=== PATIENT | male | born 1965 | race Two or more races ===

== ENCOUNTER 2025-11-13 16:39 | Emergency (ER) | payer OTHER, SELFPAY ==
--- OUTSIDE RECORDS SUMMARY | 2025-11-05 09:30 | XMS_ITS | Encounter Summary ---
Author Organization [facility] Address [address], [address] [place] [address] Care Team Providers Care Final Inspector Name Role Phone Homer Garcia MD Primary Care Provider [phone]- [phone] Reason for Referral * Outpatient Service (Routine) - OpenSpecialtyDiagnoses / ProceduresReferred By ContactReferred To ContactCardiology Diagnoses Precordial pain Procedures [place] 12 [place] [address] [facility] [address] [place] [address] [place] [address] Phone: tel: fax: Referral IDStatusReasonStart DateExpiration DateVisits RequestedVisits [id number] Reason for Visit * ReasonCommentsFlank PainChest Painx1 monthOrdersPatient asking about colonoscopy. Encounter Details DateTypeDepartmentCare Team (Latest Contact Info)Ldsprsyipho75/23/2025 9:30 AM ESTOffice Visit [facility] [address] [place] [address] [place] [address] [address] [place] [address] Pure hypercholesterolemia (Primary Dx); Essential hypertension; Vitamin D deficiency; Annual physical exam; Screening PSA (prostate specific antigen); Precordial pain; Left flank pain; Costochondritis Social History Tobacco UseTypesPacks/DayYears UsedDateSmoking Tobacco: NeverSmokeless Tobacco: NeverAlcohol UseStandard Drinks/WeekCommentsYes0 (1 standard drink = 0.6 oz pure alcohol)occasionalAHC UtilitiesAnswerDate RecordedIn the past 12 months has the electric, gas, oil, or water company threatened to shut off services in your home?No01/16/2025Overall Financial Resource Strain (CARDIA)AnswerDate Recorded How hard is it for you to pay for the very basics like food, housing, medical care, and heating?Not hard at all06/11/2024HQ-2AnswerDate RecordedPHQ-9 Total Llhrj482Hunger Vital SignAnswerDate RecordedWithin the past 12 months, you worried that your food would run out before you got the money to buymore. Never true01/16/2025Within the past 12 months, the food you bought just didn't last and you didn't have money to get more.Never true01/16/2025PRAPARE - TransportationAnswerDate RecordedIn the past 12 months, has lack of transportation kept you from medical appointments or from getting medications?No 01/16/2025In the past 12 months, has lack of transportation kept you from meetings, work, or from getting things needed for daily living?No01/16/2025 Housing Stability Vital SignAnswerDate RecordedUnable to Pay for Housing in the Last YearNot on file06/11/2024Number of Places Lived in the Last YearNot on file 06/11/2024In the last 12 months, was there a time when you did not have a steady place to sleep or slept in ashelter (including now)?06/11/2024Housing Stability Vital SignAnswerDate RecordedIn the last 12 months, was there a time when you were not able to pay the mortgage or rent on time?No01/16/2025In the past 12 months, how many times have you moved where you were living? At any time in the past 12 months, were you homeless or living in a long-term (including now)?No01/16/2025Food InsecurityAnswerDate RecordedWithin the past 12 months, you worried that your food would run out before you got the money to buy more.Within the past 12 months, the food you bought just didn't last and you didn't have money to get more.Sex and Gender InformationValue Date RecordedSex Assigned at BirthNot on fileLegal KwkRych6712/24/2012 9:08 PM EST Gender YnveohrnAcpd10/08/2024 7:42 AM EDTSexual OrientationNot on filedocumented as of this encounter Last Filed Vital Signs Vital SignReadingTime TakenCommentsBlood Gexpcgov518/7611/05/2025 9:31 AM EST Geejm090511/05/2025 9:31 AM ESTTemperature--Respiratory Rate--Oxygen Ybllcggixc89% 11/05/2025 9:31 AM ESTInhaled Oxygen Concentration--Jijxfs79.2 kg (187 lb 12.8 oz)11/05/2025 9:31 AM YJMNpkvfh668.5 cm (5' 7.52 )11/05/2025 9:31 AM ESTBody Mass Index28.9611/05/2025 9:31 AM ESTdocumented in this encounter Functional Status * PHQ-2 Over the past 2 weeks, how often have you been bothered by any of the following problems?QuestionAnswerDate of AssessmentAuthorLittle interest or pleasure in doing bceslo906/23/2025 9:31 AM Lucia Saucedo MAFeeling down, depressed, or aiexekzg952/23/2025 9:31 AM Lucia Saucedo MA documented as of this encounter Progress Notes * Homer Garcia MD - 11/05/2025 9:36 AM EST Images from the original note were not included. [facility] [address] [address] [address] Dept: [phone] Jesus Black is a 60 y.o. male Established patient, who presents today for his medical conditions/complaints as noted below. Chief Complaint Patient presents with Flank Pain Chest Pain x1 month Orders Patient asking about colonoscopy. HPI: History of Present Illness The patient is a 60-year-old male who presents for evaluation of chest discomfort. He has been experiencing generalized body aches, particularly in his arms and left side, for the past month. Additionally, he reports chest discomfort, which he initially attributed to heartburn or muscle strain. The pain, described as constant, lasts approximately 15 minutes. He does not experience any associated sweating or nausea. He has not been engaging in physical activity such as gym workouts recently. 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 He has been managing the pain with Tylenol and Motrin, which provide some relief. He recalls a similar episode 10 years ago when he was hospitalized forrapid heart rate and received three doses of nitroglycerin. Despite this, no cardiac abnormalities were detected at that time. He has tried Tums without any significant relief. He is currently on omeprazole for stomach issues. He also reports back pain in the kidney area, which he believes may be nerve- related. He has a history of kidney issues, having been hospitalized for kidney failure during the COVID-19 pandemic. Occupation: driver messenger Reviewed prior notes: None Reviewed previous: Labs LDL Cholesterol (mg/dL) Date Value 11/19/2024 183 (H) LDL Calculated (mg/dL) Date Value 12/15/2018 213 (A) HDL (mg/dL) Date Value 11/19/2024 44 (goal LDL is <100) AST (U/L) Date Value 01/03/2025 18 ALT (U/L) Date Value 01/03/2025 21 BUN (mg/dL) Date Value 11/19/2024 19 Hemoglobin A1C (%) Date Value 05/12/2020 5.8 TSH (uIU/mL) Date Value 03/22/2024 1.85 BP Readings from Last 3 Encounters: 11/05/25 112/76 05/29/25 114/72 04/04/25 110/82 (goal 120/80) Hemoglobin A1C Date Value Ref Range Status 05/12/2020 5.8 4.0 - 6.0 % Final Past Medical History: Diagnosis Date Abdominal tenderness, epigastric Acute colitis Acute pancreatitis Acute sinusitis Chest pain patient states 6yrs ago (written 12/19/19) cardiac workup negative Cough Cramp of limb GERD (gastroesophageal reflux disease) pt off meds Hemorrhoids Hyperlipidemia Hypertension RUQ abdominal tenderness Past Surgical History: Procedure Laterality Date ANKLE SURGERY Right 12/27/2019 1.Right ankle removal of hardware through separate incisions, Right ankle peroneal tendons tenolysis and debridement of scar tissue ANKLE SURGERY Right 12/27/2019 RIGHT ANKLE HARDWARE REMOVAL performed by Dom Lazaro MD at [facility] OR COLONOSCOPY 07/2004 moderate sized internal hemorrhoids COLONOSCOPY 2013 COLONOSCOPY N/A 01/12/2019 COLONOSCOPY WITH COLD BIOPSY performed by Kadeem Najera MD at [facility] OR FOOT SURGERY Right 2020 KNEE ARTHROSCOPY Right 07/09/2022 SIGMOIDOSCOPY N/A 05/13/2023 Sigmoid polypectomy with cold biopsy forceps. performed by Kadeem Najera MD at [facility] ENDO UPPER GASTROINTESTINAL ENDOSCOPY N/A 03/12/2025 ESOPHAGOGASTRODUODENOSCOPY BIOPSY performed by Phil Perez MD at [facility] ENDO Family History Problem Relation Age of Onset Heart Disease Mother High Blood Pressure Mother High Cholesterol Mother Other Mother CABG Cancer Father colon Tuberculosis Father Cancer Paternal Grandfather colon Heart Disease Brother Social History Tobacco Use Smoking status: Never Smokeless tobacco: Never Substance Use Topics Alcohol use: Yes Alcohol/week: 0.0 standard drinks of alcohol Comment: occasional Current Outpatient Medications Medication Sig Dispense Refill Evolocumab (REPATHA) SOSY syringe Inject 1 mL into the skin every 14 days 2 mL 11 omeprazole (PRILOSEC) 40 MG delayed release capsule TAKE 1 CAPSULE BY MOUTH EVERY MORNING BEFORE BREAKFAST 90 capsule 0 clobetasol (TEMOVATE) 0.05 % cream Apply topically 2 times daily. 45 g 0 losartan (COZAAR) 100 MG tablet Take 1 tablet by mouth daily 90 tablet 3 cloNIDine (CATAPRES) 0.3 MG tablet Take 1 tablet by mouth daily 90 tablet 3 NIFEdipine (PROCARDIA XL) 90 MG extended release tablet Take 1 tablet by mouth daily 90 tablet 3 amphetamine-dextroamphetamine (ADDERALL) 10 MG tablet Take 1 tablet by mouth 2 times daily as needed (Concentration at work) for up to 30 days. 60 tablet 0 albuterol (PROVENTIL) (2.5 MG/3ML) 0.083% nebulizer solution Take 3 mLs by nebulization 4 times daily as needed for Wheezing 120 each 1 albuterol sulfate HFA (PROVENTIL;VENTOLIN;PROAIR) 108 (90 Base) MCG/ACT inhaler Inhale 2 puffs intothe lungs every 6 hours as needed for Wheezing 3 each 0 No current facility-administered medications for this visit. Allergies Allergen Reactions Environmental/Seasonal Other Other (See Comments) Statins Health Maintenance Topic Date Due HIV screen Never done Pneumococcal 50+ years Vaccine (1 of 1 - PCV) Never done A1C test (Diabetic or Prediabetic) 05/12/2021 Flu vaccine (1) Never done COVID-19 Vaccine (3 - 2024- season) 2025 Colorectal Cancer Screen 05/16/2026 Depression Screen 05/29/2026 Lipids 11/19/2029 DTaP/Tdap/Td vaccine (3 - Td or Tdap) 10/29/2031 Respiratory Syncytial Virus (RSV) or age 60 yrs+ (1 - 1-dose 75+ series) 2038 Shingles vaccine Completed Hepatitis C screen Completed Hepatitis A vaccine Aged Out Hepatitis B vaccine Aged Out Hib vaccine Aged Out Polio vaccine Aged Out Meningococcal (ACWY) vaccine Aged Out Meningococcal B vaccine Aged Out Prostate Specific Antigen (PSA) Screening or Monitoring Discontinued Subjective: Review of Systems Constitutional: Negative for chills and fever. HENT: Negative for rhinorrhea and sore throat. Eyes: Negative for discharge and redness. Respiratory: Negative for cough, shortness of breath and wheezing. Cardiovascular: Negative for chest pain and palpitations. Gastrointestinal: Negative for abdominal pain, diarrhea, nausea and vomiting. Genitourinary: Negative for dysuria and frequency. Musculoskeletal: Negative for arthralgias and myalgias. Neurological: Negative for dizziness, light-headedness and headaches. Psychiatric/Behavioral: Negative for sleep disturbance. Objective: BP 112/76 Pulse 65 Ht 1.715 m (5' 7.52 ) Wt 85.2 kg (187 lb 12.8 oz) SpO2 98% BMI 28.96 kg/m?? Physical Exam Vitals and nursing note reviewed. Constitutional: General: He is not in acute distress. Appearance: He is well-developed. He is not ill-appearing. HENT: Head: Normocephalic and atraumatic. Right Ear: External ear normal. Left Ear: External ear normal. Eyes: General: No scleral icterus. Right eye: No discharge. Left eye: No discharge. Conjunctiva/sclera: Conjunctivae normal. Neck: Thyroid: No thyromegaly. Trachea: No tracheal deviation. Cardiovascular: Rate and Rhythm: Normal rate and regular rhythm. Heart sounds: Normal heart sounds. Pulmonary: Effort: Pulmonary effort is normal. No respiratory distress. Breath sounds: Normal breath sounds. No wheezing. Comments: Chest wall did show reproduction of pain with palpation over the left costochondral junctions Lymphadenopathy: Cervical: No cervical adenopathy. Skin: General: Skin is warm. Findings: No rash. Neurological: Mental Status: He is alert and oriented to person, place, and time. Psychiatric: Mood and Affect: Mood normal. Behavior: Behavior normal. Thought Content: Thought content normal. The 10-year ASCVD risk score (Shannon HERNÁNDEZ, et al., 2019) is: 13% Values used to calculate the score: Age: 60 years Clinically relevant sex: Male Is Non- : No Diabetic: No Tobacco smoker: No Systolic Blood Pressure: 112 mmHg Is BP treated: Yes HDL Cholesterol: 44 mg/dL Total Cholesterol: 269 mg/dL Assessment and Plan: Trial of Lodine 400 mg twice daily for 2 weeks If no improvement of chest pain should worsen, would refer to cardiology for second opinion EKG done showing no acute changes Blood work ordered to be done after November 20 Assessment & Plan 1. Chest discomfort: - The discomfort has been present for over a month, primarily in the chest and left side, with no relief from Tums. - Tenderness is noted upon palpation of the costochondral junction, suggesting a muscular origin. - An EKG will be performed to rule out any cardiac issues. - Tylenol and Motrin provide some relief for the discomfort. 2. Kidney pain: - The patient reports pain in the kidney area, which has been persistent since a previous episode during COVID. - A urine test will be conducted to assess kidney function. - The patient has a history of kidney issues, including an episode of kidney shutdown during COVID. Assessment & Plan 1. Essential hypertension The following orders have not been finalized: - NIFEdipine (PROCARDIA XL) 90 MG extended release tablet - losartan (COZAAR) 100 MG tablet - cloNIDine (CATAPRES) 0.3 MG tablet Results No follow-ups on file. The patient (or guardian, if applicable) and other individuals in attendance with the patient were advised that Artificial Intelligence will be utilized during this visit to record, process the conversation to generate a clinical note, and support improvement of the AI technology. The patient (or guardian, if applicable) and other individuals in attendance at the appointment consented to the use of AI, including the recording. Patient given educational materials - see patient instructions. Discussed use, benefit, and side effects of prescribed medications. All patient questions answered. Pt voiced understanding. Reviewed health maintenance. Instructed to continue current medications, diet and exercise. Patient agreed with treatment plan. Follow up as directed. documented in this encounter Plan of Treatment NameTypePriorityAssociated DiagnosesOrder ScheduleLipid, FastingLabRoutine Pure hypercholesterolemia Expected: 11/20/2025, Expires: 02/18/2026asic Metabolic Panel, FastingLab Routine Annual physical exam Expected: 11/20/2025, Expires: 02/18/2026Hepatic Function PanelLabRoutine Annual physical exam Expected: 11/20/2025, Expires: 02/18/2026PSA ScreeningLabRoutine Screening PSA (prostate specific antigen) Expected: 11/20/2025, Expires: 02/18/2026Vitamin D 25 HydroxyLabRoutine Vitamin D deficiency Expected: 11/20/2025, Expires: 02/18/2026Urinalysis with MicroscopicLabRoutine Left flank pain Expected: 11/05/2025, Expires: 11/05/2026documented as of this encounter Procedures Procedure NamePriorityDate/TimeAssociated DiagnosisCommentsEKG 12-LEADRoutine 11/05/2025 Precordial pain documented in this encounter Results * EKG 12 Lead (11/05/2025) Narrative Authorizing ProviderResult TypeResult StatusHomer Garcia MDECHarpreet ORDERABLES Final Result documented in this encounter Visit Diagnoses Diagnosis Pure hypercholesterolemia- Primary Essential hypertension Unspecified essential hypertension Vitamin D deficiency Unspecified vitamin D deficiency Annual physical exam Routine general medical examination at a health care facility Screening PSA (prostate specific antigen) Special screening for malignant neoplasm of prostate Precordial pain Left flank pain Abdominal pain, unspecified site Costochondritis Tietze's disease documented in this encounter Care Teams Team MemberRelationshipSpecialtyStart [place] [address] [place] [address] [place] [address] PCP - GeneralFamily Medicine07/16/22documented as of this encounter
[2025-11-13 16:43] VITALS: BP 156/102; PULSE 82; TEMP 37.1; O2SAT 99; BMI 28.4
[2025-11-13 20:10] LABS: Glucose Urine UA NEGATIVE (NEGATIVE)
--- NOTE | 2025-11-13 20:16 | ED.GENADUL1 ---
HPI HPI - General Adult General Chief complaint: Back Pain/Injury Stated complaint: Kidney Symptoms Time Seen by Provider: 11/13/25 20:04 Source: patient Mode of arrival: walk-in History of Present Illness HPI narrative: 60-year-old male presents for right flank and abdominal pain. It started 8 days ago. He has had a kidney stone and years ago he was told he might need to have his gallbladder taken out. His states he had a fever at home but it was not checked. The day before it started he was pushing heavy carts. No current left flank or left abdominal pain. No vomiting or cough. Related Data Previous Rx's ?Medication ?Instructions ?Recorded ibuprofen 800 mg tablet 800 mg PO Q8H PRN pain #20 tabs 11/13/25 methocarbamol 750 mg tablet 750 mg PO Q8H #20 tabs 11/13/25 Allergies Allergy/AdvReac Type Severity Reaction Status Date / Time Ckkhuoj-WJU-IeF Reductase Allergy Severe aches / Verified 11/13/25 20:10 Inhibitor pain Review of Systems ROS Narrative A ten point review of systems is negative except as noted above. PFSH PFSH Social History Little interest or pleasure in doing things: not at all Feeling down, depressed, or hopeless: not at all Exam Narrative Exam Narrative: Nurses note and vital signs reviewed General:The patient appears mildly uncomfortable. He is in no distress Skin:Warm, dry, no pallor noted.There is no rash noted, including in the flank and abdominal areas. Head:Normocephalic, atraumatic Eye: Normal conjunctiva, no drainage Ears, Nose, Mouth, and Throat: oral mucosa is moist. Nares patent. Cardiovascular:Regular Rate and Rhythm Respiratory:Patient is in no distress, no accessory muscle use, lungs are clear to auscultation, no wheezing, rales or rhonchi Back:non-tender, no CVA tenderness bilaterally to percussion. GI: Soft. Nondistended. Minimal tenderness in the right upper quadrant. Musculoskeletal: The patient has no evidence of calf tenderness, no pitting edema, symmetrical pulses noted bilaterally Neurological:A&O, normal speech Psychiatric:Cooperative Constitutional Vital Signs, click to edit/add: Last Vital Signs Temp 98.8 F 11/13/25 16:43 Pulse 70 11/13/25 21:21 Resp 20 11/13/25 21:21 BP 173/87 H 11/13/25 21:21 Pulse Ox 97 11/13/25 21:21 O2 Del Method Room Air 11/13/25 21:21 Course Vital Signs Vital signs: Vital Signs Temperature 98.8 F 11/13/25 16:43 Pulse Rate 82 11/13/25 16:43 Respiratory Rate 18 11/13/25 16:43 Blood Pressure 156/102 H 11/13/25 16:43 Pulse Oximetry 99 11/13/25 16:43 Oxygen Delivery Method Room Air 11/13/25 16:43 Temperature 98.8 F 11/13/25 16:43 Pulse Rate 70 11/13/25 21:21 Respiratory Rate 20 11/13/25 21:21 Blood Pressure 173/87 H 11/13/25 21:21 Pulse Oximetry 97 11/13/25 21:21 Oxygen Delivery Method Room Air 11/13/25 21:21 Medical Decision Making MDM Narrative Medical decision making narrative: Extensive workup here is negative including CT scan and gallbladder ultrasound. Blood work is normal. Finding of gallstone is noted but there is no evidence of acute cholecystitis. He has a long history of back issues and has been recommended by 2 back specialist to have surgery. This is likely the cause of his symptoms. He is discharged home on ibuprofen and Robaxin. Treatment diagnosis and follow-up were discussed with the patient. Differential Diagnosis Differential Diagnosis: Kidney stone, UTI, pyelonephritis, muscle strain, gallbladder disease Lab Data Lab results reviewed: Yes I reviewed the patient's lab results Labs: Lab Results 11/13/25 11/13/25 Range/Units 16:49 20:30 WBC 7.7 (4.0-11.0) 10^3/uL RBC 5.52 (4.70-6.10) 10^6/uL Hgb 16.3 (14.0-18.0) g/dL Hct 46.7 (42.0-54.0) % MCV 84.6 (80.0-94.0) fL MCH 29.5 (25.9-34.0) pg MCHC 34.9 (29.9-35.2) g/dL RDW 12.9 (11.0-15.0) % Plt Count 249 (150-450) 10^3/uL MPV 10.1 (9.5-13.5) fL Neut % (Auto) 68.3 (43.0-75.0) % Lymph % (Auto) 23.1 (20.5-60.0) % [place] % (Auto) 7.0 (1.7-12.0) % Eos % (Auto) 0.6 L (0.9-7.0) % Baso % (Auto) 0.6 (0.2-2.0) % Neut # (Auto) 5.3 (1.4-6.5) 10^3/uL Lymph # (Auto) 1.8 (1.2-3.8) 10^3/uL [place] # (Auto) 0.5 (0.3-0.8) 10^3/uL Eos # (Auto) 0.1 (0.0-0.7) 10^3/uL Baso # (Auto) 0.1 (0.0-0.1) 10^3/uL Abs Immat Gran (auto) 0.03 (0.00-0.03) 10^3/uL Imm/Tot Granulo (auto) 0.4 (0.0-0.5) % Sodium 142 (136-145) mmol/L Potassium 3.2 L (3.5-5.1) mmol/L Chloride 107 (98-107) mmol/L Carbon Dioxide 23.3 (21.0-32.0) mmol/L Anion Gap 14.9 BUN 15.0 (7.0-18.0) mg/dL Creatinine 1.37 H (0.70-1.30) mg/dL Est GFR ( Amer) >60 (>=60 mL/min/1.73m^2) Est GFR (Non-Af Amer) 53 L (>=60 mL/min/1.73m^2) BUN/Creatinine Ratio 10.9 Glucose 158 H (74-106) mg/dL Calcium 9.1 (8.5-10.1) mg/dL Total Bilirubin 0.5 (0.2-1.0) mg/dL Direct Bilirubin 0.1 (0.0-0.2) mg/dL AST 14 L (15-37) U/L ALT 25 (16-63) U/L Alkaline Phosphatase 151 H (46-116) U/L Total Protein 7.8 (6.4-8.2) g/dL Albumin 4.2 (3.4-5.0) g/dL Globulin 3.6 g/dL Albumin/Globulin Ratio 1.2 Amylase 46 (25-115) U/L Lipase 33.0 (16.0-77.0) U/L Urine Color Yellow (YELLOW) Urine Clarity Clear (CLEAR) Urine pH 6.0 (5.0-9.0) Ur Specific [place] 1.025 (1.005-1.025) Urine Protein 100 A (NEG/TRACE) mg/dL Urine Glucose (UA) Negative (NEGATIVE) mg/dL Urine Ketones 15 A (NEGATIVE) mg/dL Urine Occult Blood Negative (NEGATIVE) Urine Nitrite Negative (NEGATIVE) Urine Bilirubin Small A (NEGATIVE) Urine Urobilinogen 0.2 (0.2-1.0) EU/dL Ur Leukocyte Esterase Negative (NEGATIVE) Urine RBC 0-2 (0-2) #/HPF Urine WBC 0-2 A (NONE SEEN) #/HPF Ur Squamous Epith Cells Rare (NONE/RARE) #/LPF Urine Crystals Seen A (None Seen) #/HPF Calcium Oxalate Crystal Rare Urine Bacteria Moderate A (NONE SEEN) #/HPF Urine Casts Seen A (NONE SEEN) #/LPF Hyaline Casts Rare Urine Mucus Moderate A (NONE SEEN) Ur Culture Indicated? Yes-[facility] [place] Imaging Data CT scan - abdomen: Radiologist's impression: ITS Impressions Abdomen/Pelvis CT 11/13/25 20:31 IMPRESSION: No acute intra-abdominal pathology. Uncomplicated colonic diverticula are noted. There is a 2 mm nonobstructing stone at the superior pole collecting system of the left kidney. Additional chronic findings are noted as above. Impression dictated by: Darinel Sena M.D. 11/13/2025 9:30 PM Dictation Location: [facility] Electronically authenticated by: [id number] Y Date: 11/13/2025 21:30 Upper Quadrant Ultrasound 11/13/25 21:24 IMPRESSION: No sonographic evidence of acute cholecystitis. Echogenic stones are noted in the neck of the gallbladder. Findings suggest hepatic steatosis. Impression dictated by: Darinel Sena M.D. 11/13/2025 10:07 PM Dictation Location: [facility] Electronically authenticated by: [id number] Y Date: 11/13/2025 22:07 Discharge Plan Discharge Chief Complaint: Back Pain/Injury Clinical Impression: Back pain Patient Disposition: Home, Self-Care Time of Disposition Decision: 22:25 Condition: Good Mode of Transportation: Private Vehicle Prescriptions / Home Meds: New ibuprofen 800 mg tablet 800 mg PO Q8H PRN (Reason: pain) Qty: 20 0RF methocarbamol 750 mg tablet 750 mg PO Q8H Qty: 20 0RF Print Language: Pashto Instructions: Back Pain (ED) Referrals: Homer Garcia MD [Primary Care Provider] - 1 week
[2025-11-13 20:27] LABS: Cast Seen? SEEN #/LPF (NONE SEEN); Crystals Seen? Seen #/HPF (None Seen); Urine Culture Indicated YES-FRMC
--- NOTE | 2025-11-13 20:31 | CT_ITS ---
[address] [address] Patient Name: BENITO FELIZ MRN: [id number] date: 1965 Sex: M Assigned Patient Location: ED.MAIN Current Patient Location: Accession/Order Number: [id number] Exam Date: 11/13/2025 21:11 Report Date: 11/13/2025 21:30 At the request of: REDD LIND MD Procedure: CT abdomen pelvis w con CT abdomen pelvis w con 11/13/2025 9:17 PM SIGNS AND SYMPTOMS: Right upper quadrant pain, right flank pain, diarrhea TECHNIQUE: Multidetector ct axial images of the abdomen and pelvis were obtained with IV contrast. Multiplanar reformats were performed and reviewed to further define anatomy and possible pathology. CT was performed with one or more of the following dose reduction techniques: Automated exposure control, adjustment of the mA and/or kV according to patient size, or use of iterative reconstruction technique. COMPARISON: None. FINDINGS: Lower Chest: Atherosclerotic changes are noted in the thoracic aorta. ABDOMEN: Liver: There is a 2.4 cm hepatic cyst in the dome of the liver with smaller hepatic cysts noted inferior to this. Bile Ducts: Normal caliber. Gallbladder: No calcified gallstones. Normal caliber wall. Pancreas: Within normal limits. Spleen: Within normal limits. Adrenals: Within normal limits. Kidneys: Focal areas of renal cortical atrophy are noted bilaterally suggesting prior renal infarcts versus previous pyelonephritis. There is a 2 mm nonobstructing stone at the superior pole collecting system of the left kidney. Pelvis: Reproductive Organs: No pelvic masses. Ureters: Within normal limits. Bladder: Within normal limits. Bowel: Uncomplicated colonic diverticula are noted. There is a normal appendix in the right lower quadrant. Mesenteric Lymph Nodes: No enlarged mesenteric lymph nodes. Peritoneum: No ascites or free air, no fluid collection. Vessels: Atherosclerotic changes are noted in the abdominal aorta and its branches. Retroperitoneum: Within normal limits. Abdominal Wall: Within normal limits. Bones: Degenerative changes are noted in the lower lumbar spine and within the sacroiliac joints. CT/CT abdomen pelvis w con IMPRESSION: No acute intra-abdominal pathology. Uncomplicated colonic diverticula are noted. There is a 2 mm nonobstructing stone at the superior pole collecting system of the left kidney. Additional chronic findings are noted as above. Impression dictated by: Darinel Sena M.D. 11/13/2025 9:30 PM Dictation Location: [place] [address] Electronically authenticated by: [id number] Y Date: 11/13/2025 21:30
--- OUTSIDE RECORDS SUMMARY | 2025-11-13 20:38 | XMS_ITS | Clinical Summary ---
Author Organization [employer] [facility] Address [facility] [id number] [address] [place] [address] Care Team Providers Care Director Peoplesoft Name Role Phone Homer Garcia MD Primary Care Provider [phone] Allergies No known active allergies Medications MedicationSigDispense QuantityRefillsLast FilledStart DateEnd DateStatus losartan (COZAAR) 100 mg tablet TK 1 T PO QD5101/12/2016Active ibuprofen (ADVIL,MOTRIN) 800 mg tablet TK 1 T PO Q 8 H PRF SNXU832Active methylPREDNISolone (MEDROL, MIROSLAVA,) 4 mg tablet follow package directions 21 tablet Active cyclobenzaprine (FLEXERIL) 10 mg tablet Take 1 tablet (10 mg total) by mouth 3 (three) times a day as needed for muscle spasms. 30 tablet Active hydrocortisone (HYTONE) 1 % cream Apply to affected area 2 times daily 15 g 1Active Active Problems ProblemNoted DateDiagnosed DateOther intervertebral disc displacement, lumbar tazkxx0001/31/2017Spondylosis without myelopathy or radiculopathy, lumbar region 01/31/2017Spondylosis without myelopathy or radiculopathy, lumbosacral region 01/31/2017Osteoarthritis of knee, gtreqwbhsau68/20/2017 Family History Medical HistoryRelationNameCommentsDiabetesFatherHeart diseaseMotherRelationName StatusCommentsFatherMother Social History Tobacco UseTypesPacks/DayYears UsedDateSmoking Tobacco: FormerSmokeless Tobacco: NeverAlcohol UseStandard Drinks/WeekCommentsYes0 (1 standard drink = 0.6 oz pure alcohol)occasionalChildcareAnswerDate CtkywupkUkvrsouylKquujlx79/12/2019 EmploymentAnswerDate GvpobwssObgljoekevCfswonk44/12/2019Purpose - LifeAnswerDate RecordedPurpose and direction in gnesUxsylpk07/11/2021ex and Gender Information ValueDate RecordedSex Assigned at BirthNot on fileLegal SgrZrqz3306/19/2015 11:23 AM EDTGender IdentityNot on fileSexual OrientationNot on file Last Filed Vital Signs Vital SignReadingTime TakenCommentsBlood Kvsybkmg551/9009/06/2021 11:48 AM EDT Ckfbu698609/06/2021 11:55 AM LKDXofgmmmuzlz63.7 ??C (98 ??F)09/06/2021 11:55 AM EDTRespiratory Sfol5208 11:55 AM EDTOxygen Iguarrmzkz61%09/06/2021 11:55 AM EDTInhaled Oxygen Concentration--Bevixi88.6 kg (180 lb)09/06/2021 11:55 AM IDDJgujbf920.7 cm (5' 8 )09/06/2021 11:55 AM EDTBody Mass Index27.371 11:55 AM EDT Plan of Treatment Health MaintenanceDue DateLast DoneCommentsDepression Emvlgjbvy27/06/1975Tobacco Nhfkfnvgm14/06/1975Adult BMI Ewmcbicfs19/06/1981RSV ( or age 60+ yrs) (1 - Risk 50-74 years 1-dose series)2013COVID-19 Vaccine (3 - Moderna risk series)/, 02/06/2021Influenza Flcumog2207/15/2025DTaP,Tdap and Td Vaccines (3 - Td or Tdap)/, 03/26/2011Zoster (Shingles) GqjomueSyxdqydal19/09/2024, 03/25/2023 Medical Devices Not on file Insurance * Guarantor: Jesus FelizAccoarcelia TypeRelation to PatientDate of BirthPhone Billing AddressPersonal/OpaczcYvuo1965 [address] [place] [address] * Guarantor: Olga Lidia Feliz TypeRelation to PatientDate of BirthPhone Billing AddressWorkers HihyDfpc1965 [address] [address] Care Teams Team MemberRelationshipSpecialty[place] [address] [place] [address] PCP - GeneralFamily Medicine06/17/23
--- OUTSIDE RECORDS SUMMARY | 2025-11-13 20:38 | XMS_ITS | Clinical Summary ---
Author Organization [facility] Address [address] [place] [address] Care Team Providers Care Communications Tower Climber Name Role Phone Unavailable Primary Care Provider Unavailabl e Social History Tobacco UseTypesPacks/DayYears UsedDateSmoking Tobacco: Never AssessedSex and Gender InformationValueDate RecordedSex Assigned at BirthNot on fileLegal Sex Male01/26/2023 11:50 PM EDTGender IdentityNot on fileSexual OrientationNot on file Plan of Treatment Not on file
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
--- OUTSIDE RECORDS SUMMARY | 2025-11-13 20:38 | XMS_ITS | Patient Health Record ---
Author Organization [facility] [place] Address [address] [place] [address] Care Team Providers Care Drapery Cutter Name Role Phone Homer Garcia MD Primary Care Provider Unavailabl e Allergies No Known Allergies Reason For Referral No Information Medications Medication SIG (Take, Route, Frequency, Duration) Notes Start Date End Date Status Dulcolax 5 MG 4 as directed Orally Once a day; Duration: 1 days 04/05/2023ctiveNIFEdipineActivePolyethylene Glycol 3350 -as directed Orally Once a day; Duration: 1 days04/05/2023ctivecloNIDineActiveLosartan Potassium ActivePantoprazole SodiumActiveHYDROcodone-AcetaminophenActive Immunizations Vaccine Route Administration Date Status Comme nts Tdap Intramuscular 03/26/2011 Pending 19Bhm5732 1 2:07PM Social History Tobacco Use: Social History Observation Description Date Details (start date - stop date) Never Smoker NA - NA Tobacco Use/Smoking Question Answer Notes Patient is a nonsmoker Problems Problem Type SNOMED Code ICD Code Onset Dates Problem Status W/U Status Risk Notes Problem Diverticula of intestine (178769 04) Diverticulosis of intestine, part unspecified, without perforation or abscess without bleeding (K57.90) ActiveconfirmedProblemHemorrhoids (44371909)Unspecified hemorrhoids (K64.9) ActiveconfirmedProblemFamily history of malignant neoplasm of gastrointestinal tract (598267451)Family history of malignant neoplasm of digestive organs (Z80.0)ActiveconfirmedProblemHistory of polyp of colon (situation) (521903131) History of colon polyps (Z86.010)ActiveconfirmedProblemDiverticular disease of colon (342453597)Sigmoid diverticulosis (K57.30)Activeconfirmed Plan Of Treatment Pending Test Test Name Order Date Colonoscopy 04/05/2023 XR Chest PA and Lateral (Routine CXR) * 10/20/2023 PFT Complete 10/20/2023 Insurance Providers Payer Name Payer Address Payer Phone Subscriber Number Group Number Insured Name Patient Relationship to Insured Coverage Start Date Coverage End Date [address] [place], [place] [id number] Yareli Black Spouse - patient is the spouse of the insured Medical (General) History Surgical History Surgery Date(Month/Year)
--- OUTSIDE RECORDS SUMMARY | 2025-11-13 20:38 | XMS_ITS | Clinical Summary ---
Author Organization [facility] [place] Address [address] [place], [place] [id number] Care Team Providers Care Back Tacker Name Role Phone Homer Garcia MD Primary Care Provider [phone] Allergies No known active allergies Medications * This document contains information received from the source organization and may not represent a complete record from that organization. MedicationSigDispense QuantityRefillsLast FilledStart DateEnd DateStatus NIFEdipine ER (PROCARDIA XL) 90 mg 24 hr tablet Take 90 mg by mouth once daily.Active losartan-hydrochlorothiazide (HYZAAR) 100-25 mg per tablet Take 1 tablet by mouth once daily.Active cloNIDine HCl (CATAPRES) 0.3 mg tablet Take 0.3 mg by mouth twice daily.Active HYDROCODONE BITARTRATE ORAL Take by mouth as needed (back pain, neck pain).Active Family History Medical HistoryRelationCommentsColon CancerFatherHTN [Other]Motherlung cancer [Other]Paternal GrandfatherRelationStatusCommentsFatherMotherPaternal Grandfather Social History Tobacco UseTypesPacks/DayYears UsedDateSmoking Tobacco: NeverAlcohol UseStandard Drinks/WeekCommentsYes0 (1 standard drink = 0.6 oz pure alcohol)Occassionally Sex and Gender InformationValueDate RecordedSex Assigned at BirthNot on file Legal WsfTebb1306/03/2015 5:36 PM EDTGender IdentityNot on fileSexual Orientation Not on file Last Filed Vital Signs Vital SignReadingTime TakenCommentsBlood Hgrqnxpu405/8110 2:02 PM EDT Vbanw1592 2:02 PM EDTTemperature--Respiratory Pkgg437801/01/2016 1:19 PM ESTOxygen Dmhxfuzawr89%01/01/2016 1:19 PM ESTInhaled Oxygen Concentration-- Ysjaqu11.9 kg (189 lb 6.4 oz)08/24/2016 2:02 PM AEJQnanxm944.7 cm (5' 8 ) 01/01/2016 1:19 PM ESTBody Mass Index28.8001/01/2016 1:19 PM EST Plan of Treatment Health MaintenanceDue DateLast DoneCommentsAnxiety Uluegdauw53/06/1981Depression Rvrjtjxzf63/06/1981HIV Skelteyod31/06/1981Hepatitis C Edfmlcofs92/06/1981Lipid Cqoifwpwm35/06/1998CT Etlwlqlwvkqu97/06/2008Cologuard (FIT-DNA)2008 Wlyqcfoxgxa30/06/2008Colorectal Cancer Dmdqebzsr25/06/2008Fecal Occult Blood 2008Prostate Cancer Screening Uwcihfobfp06/06/1698Jmwmemzgqbtsr72/06/2008 Pneumococcal Vaccine: 50+ (1 of 1 - PCV)2013Shingrix Vaccine (1 of 2) 2013Diabetes Fkzkcczqk24DTaP,Tdap,Td Vaccine (2 - Td or Tdap)Covid-19 Vaccine (1 - 2024- season)2025 Influenza Vaccine (#1)2025RSV Vaccine (1 - 1-dose 75+ series)2038 Procedures Procedure NamePriorityDate/TimeAssociated DiagnosisCommentsCOMPREHENSIVE METABOLIC PANEL (EU,FV,HL,YUMIKO,MM,SP)Xrdsagm1107/10/2015 4:26 PM EDT from Last 3 Months or Most Recently Relevant to Health Maintenance Results * (ABNORMAL) COMPREHENSIVE METABOLIC PANEL (EU,FV,HL,LK,YUMIKO,MM,SP) (07/10/2015 4:26 PM EDT)ComponentValueRef RangeTest MethodAnalysis TimePerformed At Pathologist SignatureProtein, Total7.36.0 - 8.4 g/dL07/10/2015 10:57 PM EDT [facility] MA[facility] LABORATORYAlbumin4.53.5 - 5.0 g/dL07/10/2015 10:57 PM [facility]TC[facility] LABORATORYCalcium9.18.5 - 10.5 mg/dL07/10/2015 10:57 PM [facility] MA[facility] LABORATORYBilirubin, Total0.30.0 - 1.5 mg/dL 07/10/2015 10:57 PM [facility] MAIN LABORATORYAlkaline Qtmhepqglja849 40 - 150 U/L07/10/2015 10:57 PM [facility] RVIKTQBUEWVGH923 - 40 U/L07/10/2015 10:57 PM [facility] RYWHIUHXPULbhdeqg150(H)65 - 100 mg/dL07/10/2015 10:57 PM [facility] NUWFCUXYCJVNZ1125 - 25 mg/dL07/10/2015 10:57 PM [facility] LABORATORYCreatinine1.310.70 - 1.40 mg/dL07/10/2015 10:57 PM [facility] QGACCUZZMHLiepbs846 135 - 146 mmol/L07/10/2015 10:57 PM [facility] Potassium3.93.5 - 5.0 mmol/L07/10/2015 10:57 PM [facility] DGZNMJAUWGBaaycmge44367 - 110 mmol/L07/10/2015 10:57 PM [facility] EQYKRJZQNEZC65122 - 32 mmol/L07/10/2015 10:57 PM [facility] LABORATORYAnion Idb169 - 15 mmol/L07/10/2015 10:57 PM [facility] MWRGUJQYEJMYL065 - 50 U/L07/10/2015 10:57 PM [facility] MAIN LABORATORYGlom Filtration Rate (AA)>6008 10:57 PM [facility] MAIN LABORATORYGlom Filtration Rate (SHABNAM)58.07/10/2015 10:57 PM [facility] MAIN LABORATORYComment: eGFR (Estimated GFR) Units of measure: mL/min/1.73 meters squared eGFR is derived from the reexpressed MDRD Study equation using the following parameters: serum creatinine, age, gender and race. The creatinine assay has been calibrated to be traceable to IDMS. An eGFR <60 mL/min/1.73m2 for >3 months is consistent with chronic kidney disease. Refer to KDOQI guidelines for clinical interpretation. In patients with unstable renal function, e.g. those with acute kidney injury, the eGFR may not accurately reflect actual GFR. Specimen (Source)Anatomical Location / LateralityCollection Method / Volume Collection TimeReceived Time07/10/2015 4:26 PM EDT07/10/2015 4:27 PM EDT Narrative Authorizing ProviderResult TypeResult StatusYuri Rosado MD, PhDLABORATORY REGIONALFinal ResultPerforming OrganizationAddressCity/State/ZIP CodePhone Number [facility] [address] [place] [address] from Last 3 Months or Most Recently Relevant to Health Maintenance Insurance Care Teams Team MemberRelationshipSpecialtyStart DateEnd Date Homer Garcia MD PCP - GeneralFamily Medicine07/10/15
[2025-11-13] MEDS: KETOROLAC TROMETHAMINE 30 MG/ML VIAL IVP (20:43)
[2025-11-13 20:45] LABS: Hematocrit 46.7 % (42.0-54.0); Hemoglobin 16.3 g/dL (14.0-18.0); Immature Granulocytes Abs Auto 0.03 10^3/uL (0.00-0.03); Immature Granulocytes Pct Auto 0.4 % (0.0-0.5); Lymphocytes Absolute Auto 1.8 10^3/uL (1.2-3.8); Mean Corpuscular HGB Conc 34.9 g/dL (29.9-35.2); Mean Corpuscular Hemoglobin 29.5 pg (25.9-34.0); Mean Corpuscular Volume 84.6 fL (80.0-94.0); Platelet Count 249 10^3/uL (150-450); Red Blood Count 5.52 10^6/uL (4.70-6.10); White Blood Count 7.7 10^3/uL (4.0-11.0)
[2025-11-13 21:02] LABS: Alanine Aminotransferase 25 U/L (16-63); Albumin Globulin Ratio 1.2; Albumin Level 4.2 g/dL (3.4-5.0); Alkaline Phosphatase 151 U/L (46-116); Amylase 46 U/L (25-115); Anion Gap 14.9; Aspartate Amino Transferase 14 U/L (15-37); Blood Urea Nitrogen 15.0 mg/dL (7.0-18.0); Calcium 9.1 mg/dL (8.5-10.1); Carbon Dioxide 23.3 mmol/L (21.0-32.0); Chloride 107 mmol/L (98-107); Estimated GFR (African America >60 (>=60 mL/min/1.73m^2); Estimated GFR (Non-African Ame 53 (>=60 mL/min/1.73m^2); Globulin 3.6 g/dL; Glucose 158 mg/dL (74-106); Lipase 33.0 U/L (16.0-77.0); Potassium 3.2 mmol/L (3.5-5.1); Sodium 142 mmol/L (136-145); Total Protein 7.8 g/dL (6.4-8.2)
[2025-11-13 21:21] VITALS: BP 173/87; PULSE 70; O2SAT 97
--- NOTE | 2025-11-13 21:24 | US_ITS ---
The [address] [address] Patient Name: BENITO FELIZ MRN: [id number] date: 1965 Sex: M Assigned Patient Location: ER Current Patient Location: ER Accession/Order Number: [id number] Exam Date: 11/13/2025 21:30 Report Date: 11/13/2025 22:07 At the request of: REDD LIND MD Procedure: US right upper quadrant EXAMINATION TYPE: US right upper quadrant DATE OF EXAM ORDERED: 11/13/2025 9:58 PM HISTORY: Pain, history of gallbladder disease, COMPARISON: NONE TECHNIQUE: Realtime imaging limited to the right upper quadrant was performed. FINDINGS: Echogenic stones are noted in the neck of the gallbladder. The gallbladder wall measures 2.8 mm in thickness. Common bile but measures 4 mm in diameter. No intrahepatic or extrahepatic biliary dilatation is seen. The liver is echogenic in respect to the right renal cortex suggesting hepatic steatosis. Hepatopedal flow is noted in the main portal vein. Partial visualization of the right kidney reveals no gross hydronephrosis. Partial visualization of the pancreas reveals no abnormality. US/US right upper quadrant IMPRESSION: No sonographic evidence of acute cholecystitis. Echogenic stones are noted in the neck of the gallbladder. Findings suggest hepatic steatosis. Impression dictated by: Darinel Sena M.D. 11/13/2025 10:07 PM Dictation Location: [place] [address] Electronically authenticated by: [id number] Y Date: 11/13/2025 22:07
== END 2025-11-13 22:48 | disposition home or self-care (01) ==
PROVIDERS: Emergency Medicine; Emergency Provider Emergency Medicine; PCP Family Medicine
DX: M54.9 Dorsalgia, unspecified (principal); Z87.442 Personal history of urinary calculi
CPT/HCPCS: 36415; 74177; 76705; 80048; 80076; 81001; 82150; 83690; 85025; 87086; 96374; 99284; J1885; Q9967